=== PATIENT | female | born 1970 | race African-American/Black ===

== ENCOUNTER → 2016-09-03 | Outpatient (CLI) | payer OTHER ==
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
== END | disposition home or self-care (01) ==
LOC: CRAD 09:16
DX: M54.2 Cervicalgia (principal); M47.892 Other spondylosis, cervical region
CPT/HCPCS: 72040